=== PATIENT | female | born 1945 | race Caucasian/White ===

== ENCOUNTER → 2016-09-06 | Outpatient (CLI) | payer MEDICARE, BC ==
[2016-09-06 16:35] LABS: ALT 51 U/L (9-52); AST 31 U/L (14-36); Alkaline Phosphatase 79 U/L (38-126); Anion Gap 8 mmol/L; Blood Urea Nitrogen 18 mg/dL (7-17); Calcium 9.3 mg/dL (8.4-10.2); Carbon Dioxide 29 mmol/L (22-30); Chloride 106 mmol/L (98-107); Glucose 113 mg/dL (74-99); Non-African American GFR(MDRD) >60 (>60 ml/min/1.73 sqM); Potassium 4.1 mmol/L (3.5-5.1); Sodium 143 mmol/L (137-145); Total Bilirubin 0.6 mg/dL (0.2-1.3); Total Protein 6.2 g/dL (6.3-8.2)
== END | disposition home or self-care (01) ==
LOC: LABWHC1 15:17
PROVIDERS: ATTEND Internal Medicine Endocrinology, Diabetes & Metabolism
DX: E21.0 Primary hyperparathyroidism (principal)
CPT/HCPCS: 36415; 80053; 82306; 83970

== ENCOUNTER 2016-09-15 15:49 | Emergency (ER) | payer MEDICARE, BC ==
[2016-09-15 15:56] VITALS: BP 180/75; PULSE 85; RESP 20; TEMP 97.5
--- NOTE | 2016-09-15 16:11 | ED ---
Lower Extremity Injury HPI - General Chief Complaint: Extremity Injury, Lower Stated Complaint: Fall/Knee Pain Time Seen by Provider: 09/15/16 15:58 Source: patient, RN notes reviewed Mode of arrival: wheelchair Limitations: no limitations - History of Present Illness Initial Comments: Patient is a 71-year-old female presents emergency room for evaluation of left knee pain. Patient states around 10:00 this morning she slipped while putting the mail in her mailbox and landed on the ice. Patient states her knee landed directly on the ice. Patient states she's having increasing left knee pain. Patient states she's having some bruising and swelling of her left knee. Patient denies any numbness or tingling in her toes. Patient states the pain is worse whenever she walks. Patient denies any other injuries during incident. Patient denies head trauma, headache, dizziness, nausea or vomiting. Patient denies taking anything for pain. Patient states the pain has not been improving so she thought she should come here to have her knee evaluated. - Related Data Home Medications Medication Instructions Recorded Confirmed Montelukast [Singulair] 10 mg PO HS 10/04/15 09/15/16 Ranitidine HCl [Zantac] 150 mg PO QAM 09/15/16 09/15/16 Allergies Allergy/AdvReac Type Severity Reaction Status Date / Time cat dander Allergy Unknown Verified 09/15/16 16:13 dog dander Allergy Unknown Verified 09/15/16 16:13 mold Allergy WATERY EYES Verified 09/15/16 16:13 prednisone AdvReac Unknown Verified 09/15/16 16:13 YEAST Allergy WATER EYES Uncoded 09/15/16 15:57 YOGURT Allergy WATERY EYES Uncoded 09/15/16 15:57 Review of Systems ROS Statement: Those systems with pertinent positive or pertinent negative responses have been documented in the HPI. ROS Other: All systems not noted in ROS Statement are negative. Past Medical History Past Medical History: GERD/Reflux, Thyroid Disorder Additional Past Medical History / Comment(s): 10/25/15 Pt admtitted to floor s/ p parathyroidectomy. Other HX: ALLERGIES. PERIODIC VERTIGO. HYPOGYLCEMIA., PT VERY ANXIOUS ABOUT SURGERY. History of Any Multi-Drug Resistant Organisms: None Reported Past Surgical History: Appendectomy, Breast Surgery, Section, Hysterectomy Additional Past Surgical History / Comment(s): 10/25/15 Parathyroidectomy. Othr surgeries: BREAST SURGERY/NEG. D & C. LEFT CATARACT. Past Anesthesia/Blood Transfusion Reactions: No Reported Reaction, Motion Sickness Past Psychological History: No Psychological Hx Reported Additional Psychological History / Comment(s): Pt resides at home with her spouse. She is independent. She drives. She uses no assistive device. Smoking Status: Never smoker Past Alcohol Use History: None Reported Past Drug Use History: None Reported - Past Family History Father Family Medical History: Myocardial Infarction ([place]) Additional Family Medical History / Comment(s): Father of a [place] at age 48 yrs. Mother Family Medical History: CVA/TIA Additional Family Medical History / Comment(s): Mother at age 85 yrs. General Exam - General Exam Comments Initial Comments: Sitting in exam room, no acute distress. Limitations: no limitations General appearance: alert, in no apparent distress Head exam: Present: atraumatic, normocephalic, normal inspection Eye exam: Present: normal appearance ENT exam: Present: normal exam Neck exam: Present: normal inspection Respiratory exam: Present: normal lung sounds bilaterally. Absent: respiratory distress Cardiovascular Exam: Present: regular rate, normal rhythm, normal heart sounds Left Hip exam: Present: normal inspection, full ROM. Absent: tenderness Upper Leg exam: Present: normal inspection, full ROM. Absent: tenderness Knee exam: Present: tenderness (Anterior patella), swelling (Anterior patella), ecchymosis (Anterior patella). Absent: full ROM (Limited flexion secondary to pain) Lower Leg exam: Present: normal inspection, full ROM. Absent: tenderness Neurovascular tendon exam: Present: no vascular compromise. Absent: pulse deficit (2+ dorsal pedal and posterior tibial pulses), abnormal cap refill ( Capillary refill less than 2 seconds) Back exam: Present: normal inspection Neurological exam: Present: alert, oriented X3, CN II-XII intact Psychiatric exam: Present: normal affect, normal mood Skin exam: Present: warm, dry, intact, normal color. Absent: rash Course Vital Signs 09/15/16 15:54 Temperature 97.5 F L Pulse Rate 85 Respiratory 20 Rate Blood Pressure 180/75 O2 Sat by Pulse 99 Oximetry Medical Decision Making - Medical Decision Making Patient is a 71-year-old female presents emergency room for evaluation of fall/ left knee pain. Left knee x-ray: In tears soft tissue swelling with moderate knee joint effusion. Unable to exclude a subtle nondisplaced fracture of the lower third patella (per radiology). Left knee x-ray reviewed by myself, I did note lucency on the lower portion of the patella. Patient will be placed in knee immobilizer and advised follow-up with process control specialist on Saturday. Patient will be given crutches. Patient declined any pain medications and states she can take ibuprofen at home for pain. Patient states she understands everything that was discussed with her. Return parameters discussed. Case discussed with Dr. Freitas. - Radiology Data Radiology results: report reviewed, image reviewed Disposition Clinical Impression: Patellar fracture, Fall Disposition: HOME SELF-CARE Condition: Good Instructions: Patellar Fracture (ED) Additional Instructions: Rest, elevate and ice on and off for 10-15 minutes for the next 24-48 hours. Do not put any weight on left leg. Take Tylenol or Motrin for pain. Please follow-up with process control specialist on Saturday. If new symptoms develop or symptoms worsen, please return to the ER. Referrals: Akhil Leblanc MD [Primary Care Provider] - 1-2 days Ricky Latham DO [Doctor of Osteopathic Medicine] - 1-2 days Time of Disposition: 16:37
--- NOTE | 2016-09-15 16:32 | XR ---
EXAMINATION TYPE: XR knee complete LT DATE OF EXAM: 09/15/2016 4:23 PM COMPARISON: NONE HISTORY: 71-year-old female with pain after fall on ice TECHNIQUE: 3 views FINDINGS: Mild osteopenia mild anterior soft tissue swelling especially along the infrapatellar region and smal l to moderate knee joint effusion. A subtle lucency seen along the anterior cortex of the lower third patella especially on the oblique and lateral views. No other acute fracture or dislocation seen. IMPRESSION: Anterior soft tissue swelling with moderate knee joint effusion. Unable to exclude a subtle nondispla sarabjit fracture of the lower third patella.
== END 2016-09-15 16:49 | disposition home or self-care (01) ==
LOC: EC 15:49
DX: S82.002A Unspecified fracture of left patella, initial encounter for closed fracture (principal); K21.9 Gastro-esophageal reflux disease without esophagitis; Z79.899 Other long term (current) drug therapy; Z91.018 Allergy to other foods; Z91.048 Other nonmedicinal substance allergy status; W00.0XXA Fall on same level due to ice and snow, initial encounter; Y93.89 Activity, other specified
CPT/HCPCS: 73562; 99284; L1830 ×2

== ENCOUNTER → 2016-12-24 | Outpatient (CLI) | payer MEDICARE, BC ==
[2016-12-24 11:55] LABS: ALT 34 U/L (9-52); AST 27 U/L (14-36); Alkaline Phosphatase 73 U/L (38-126); Anion Gap 8 mmol/L; Blood Urea Nitrogen 17 mg/dL (7-17); Calcium 9.7 mg/dL (8.4-10.2); Carbon Dioxide 31 mmol/L (22-30); Chloride 105 mmol/L (98-107); Glucose 91 mg/dL (74-99); Non-African American GFR(MDRD) >60 (>60 ml/min/1.73 sqM); Potassium 4.1 mmol/L (3.5-5.1); Sodium 144 mmol/L (137-145); Total Bilirubin 0.8 mg/dL (0.2-1.3); Total Protein 6.9 g/dL (6.3-8.2)
== END | disposition home or self-care (01) ==
LOC: LABWHC1 11:03
PROVIDERS: ATTEND Internal Medicine Endocrinology, Diabetes & Metabolism
DX: E21.0 Primary hyperparathyroidism (principal); M81.0 Age-related osteoporosis without current pathological fracture
CPT/HCPCS: 36415; 80053; 82306

== ENCOUNTER → 2017-01-25 | Outpatient (CLI) | payer MEDICARE, BC ==
[~2017-01-25] MED LIST: REGADENOSON 0.4 MG/5 ML SYRINGE IV ONE
--- NOTE | 2017-01-25 11:01 | NM ---
EXAMINATION TYPE: NM stress lexiscan cardiolite DATE OF EXAM: 01/25/2017 10:51 AM COMPARISON: NONE HISTORY: Chest pain TECHNIQUE: After the intravenous administration of 10.8 mCi Tc 99m Sestamibi - Cardiolite resting SP ECT images acquired 45 minutes post injection. The patient received 0.4mg Lexiscan, 26.0 mCi Tc 99m Sestamibi - Stress images obtained [address] injection FINDINGS: Review of stress and rest SPECT images demonstrates area of reduced uptake of radiotracer and stress images involving the lateral wall the myocardium compared to rest images.. Gated analysis shows norm al wall motion with an estimated left ventricular ejection fraction of 85 %. IMPRESSION: Findings are suggestive of an area of stress-induced reversibility involving the lateral wall the myocardium which may be artifactual. Correlate with EKG and clinical analysis. Stress-induce d ischemia not excluded. A Yellow message has been communicated to Akhil Leblanc MD via the [employer] Critical Result system on 01/25/2017 10:59 AM, Message ID [id number].
--- NOTE | 2017-01-25 11:07 | US ---
EXAMINATION TYPE: US abdomen complete DATE OF EXAM: 01/25/2017 9:11 AM COMPARISON: CT scan 11/05/2015 CLINICAL HISTORY: R10.13 Epigastric Pain. EXAM MEASUREMENTS: Liver Length: 13.9 cm Gallbladder Wall: 0.4 cm CBD: 0.3 cm Spleen: 9.2 cm Right Kidney: 10.1 x 3.7 x 3.6 cm Left Kidney: 10.6 x 4.4 x 4.2 cm Pancreas: visualized portions appear slightly heterogeneous, tail obscured by overlying bowel Liver: heterogeneous Gallbladder: no evidence of stones Evidence for sonographic Barnett's sign: No CBD: wnl Spleen: granulomas Right Kidney: parapelvic cystic areas noted, dense echogenic foci noted with largest = 0.6cm Left Kidney: parapelvic cystic areas noted, dense echogenic area = 0.5cm Upper IVC: wnl Abd Aorta: visualized portions appear wnl IMPRESSION: 1. 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 Bilateral nephrolithiasis. 3. parapelvic renal cyst versus mild hydronephrosis
--- NOTE | 2017-01-25 12:28 | EST ---
DATE OF SERVICE: 01/25/2017 AGE: 71Y SEX: F HT: 66" WT: 147 lbs. Lexiscan Cardiolite Stress Test *Heart Rate Blood Pressure *Rest: 88 Rest: 198/91 * *Max. Achieved: 128 Maximum BP: 203/78 85% PMHR: 128 100% PMHR: 150 *METS: - INDICATIONS: EKG abnormality. MEDICATIONS: Cipro Patient was given Lexiscan injection over a period of 15 seconds. Peak heart rate of 128 was achieved. Maximum blood pressure of 203/78 mmHg was noted. Resting EKG shows normal sinus rhythm with normal HI interval and QRS duration and normal ST-T waves. No ST segment depression suggestive of ischemia is noted. FINAL IMPRESSION: 1. There is no evidence of any ST segment depression to suggest ischemia during Lexiscan injection. 2. The results of the nuclear study will follow.
== END | disposition home or self-care (01) ==
LOC: RADUSMAIN 08:16
PROVIDERS: ATTEND Family Medicine
DX: N20.0 Calculus of kidney (principal); D73.89 Other diseases of spleen; K76.0 Fatty (change of) liver, not elsewhere classified; I25.2 Old myocardial infarction
CPT/HCPCS: 93017; 76700; 78452; A9500; J2785

== ENCOUNTER → 2017-02-05 | Outpatient (CLI) | payer MEDICARE, BC ==
[2017-02-05 11:25] LABS: Anion Gap 8 mmol/L; Blood Urea Nitrogen 17 mg/dL (7-17); Carbon Dioxide 28 mmol/L (22-30); Chloride 107 mmol/L (98-107); Non-African American GFR(MDRD) >60 (>60 ml/min/1.73 sqM); Potassium 4.4 mmol/L (3.5-5.1); Sodium 143 mmol/L (137-145)
[2017-02-05 11:30] LABS: CH 28.8; CHCM 32.7; HCT 40.8 % (34.0-46.0); HDW 2.33; HGB 13.4 gm/dL (11.4-16.0); MCH 29.1 pg (25.0-35.0); MCV 88.3 fL (80.0-100.0); Mean Platelet Volume 8.6; RBC 4.62 m/uL (3.80-5.40); RDW 13.6 % (11.5-15.5)
== END ==
LOC: LABPAT 10:40
PROVIDERS: ATTEND Internal Medicine Interventional Cardiology
DX: Z01.812 Encounter for preprocedural laboratory examination (principal); R94.30 Abnormal result of cardiovascular function study, unspecified
CPT/HCPCS: 74000; 80051; 82565; 84520; 85027

== ENCOUNTER → 2017-02-05 | Outpatient (CLI) | payer MEDICARE, BC ==
--- NOTE | 2017-02-05 11:35 | XR ---
EXAMINATION TYPE: XR abdomen 1V DATE OF EXAM ORDERED: 02/05/2017 HISTORY: N20.0 stones. COMPARISON: Previous study dated 12/07/2015. FINDINGS: The abdominal gas pattern is normal. There is no evidence of obstruction or free air. Ther e are stable phleboliths within the pelvis. There is a questionable 5.3 cm millimeters calculus overl ebony the mid polar region of the right kidney. IMPRESSION: I CANNOT EXCLUDE A RIGHT RENAL CALCULUS.
== END | disposition home or self-care (01) ==
LOC: RADXRMAIN 11:09
PROVIDERS: ATTEND Urology
DX: N20.0 Calculus of kidney (principal)
CPT/HCPCS: 74000

== ENCOUNTER → 2017-02-12 | Day surgery (SDC) | payer MEDICARE, BC ==
[2017-02-07 17:07] VITALS: BMI 25.3
[~2017-02-12] MED LIST changes: +ACETAMINOPHEN TAB 325 MG TAB ONE; +ACETAMINOPHEN TAB 325 MG TAB PO PRN; +ALPRAZolam 0.25 MG TAB PO PRN; +ALPRAZolam 0.5 MG TAB PO PRN; +ASPIRIN 325 MG TAB PO STA; +ATORVASTATIN 80 MG TAB PO STA; +IOHEXOL 350 MG/ML 125ML BOTTLE INJ ONE; +LIDOCAINE 2% INJ 20 MG/ML SQ ONE; +NITROGLYCERIN SL TABS 0.4 MG TAB SUBLINGUAL PRN; -REGADENOSON 0.4 MG/5 ML SYRINGE IV ONE; +RX INFO: IV CONTRAST WAS GIVEN 1 EACH MISC MISCELLANE PRN; +SODIUM CHLORIDE 0.9% 1,000 ML IV SCH; +SODIUM CHLORIDE 0.9% 1,000 ML in EMPTY BAG 1 BAG IV ONE; +diphenhydrAMINE 50 MG/ML 1 ML VIAL IVP ONE
[2017-02-12 08:19] VITALS: RESP 18
[2017-02-12] MEDS: MIDAZOLAM 2 MG/2 ML VIAL IV ONE ×2 (08:45→08:47)
[2017-02-12] MEDS: VERAPAMIL SYRINGE (5 MG/10 ML) INTRAARTER ONE ×2 (08:56→09:11)
--- NOTE | 2017-02-12 10:43 | CC ---
DATE OF SERVICE: 02/12/2017 Performing physician: Baldev Wilson, hoisting pile driving engineer. PROCEDURE PERFORMED: 1. Selective right and left coronary angiogram. 2. Left heart catheterization. INDICATION: This is a pleasant 72-year-old female patient who underwent recently a stress test which showed lateral ischemia. She was brought today to undergo a heart catheterization. She was experiencing atypical chest discomfort. Approach: Right radial artery. COMPLICATIONS: None. Level of sedation: Moderate. PROCEDURE DESCRIPTION: After obtaining informed consent, the patient was brought to the cardiac labor mediator. Right radial artery was cannulated using micropuncture technique. The micropuncture wire passed easily, then I placed 6 Cymraes sheath in the right radial artery. Subsequently, I did selective right and left coronary angiogram using JR4 and JL 3.5 catheters. After that, I did left heart catheterization using a 5 Cymraes pigtail catheter. The procedure was completed without any complication. SELECTIVE CORONARY ANGIOGRAM: 1. The right coronary artery is a large-caliber vessel and it is a dominant vessel. The right coronary artery is angiographically normal besides being tortuous. Distally bifurcates into PDA and PLV branches; both are angiographically normal. 2. The left main is angiographically normal. It bifurcates into a medium-size left circumflex and left anterior descending artery. 3. The left circumflex is a medium caliber vessel and it is a nondominant vessel. The left circumflex is angiographically normal. 4. Left anterior descending artery. The proximal LAD is angiographically normal. The mid LAD is normal as well and gives rises into a medium size diagonal branch, which seems to be angiographically normally. The LAD distally is angiographically normal. HEMODYNAMICS: The left ventricular end-diastolic pressure was 12 mmHg and no gradient was identified across the aortic valve. CONCLUSION: 1. Tortuous right and left coronary system. 2. Normal coronary angiogram. 3. Dominant right coronary artery. 4. Medium-sized nondominant left circumflex coronary artery. POSTPROCEDURE MANAGEMENT: Maximize medical treatment and follow up with the patient.
--- NOTE | 2017-02-12 10:57 | LTR ---
February 12, 2017 ANICETO LEBLANC MD RE: Laila Hayden Dear Dr. Leblanc: Ms. Ulloa Catracho underwent a heart catheterization which showed normal coronaries. I want to thank you for allowing me to participate in her care and please do not hesitate to call if you have any questions or concerns. Sincerely, DEBBIE ROBERTS MD
[2017-02-12 13:22] VITALS: TEMP 98
[2017-02-12 13:56] VITALS: BP 168/61; PULSE 66
== END ==
LOC: CATHCVL 07:47
PROVIDERS: ATTEND Internal Medicine Interventional Cardiology
DX: R94.39 Abnormal result of other cardiovascular function study (principal); I25.110 Atherosclerotic heart disease of native coronary artery with unstable angina pectoris; Z82.49 Family history of ischemic heart disease and other diseases of the circulatory system; Z79.2 Long term (current) use of antibiotics; Z79.899 Other long term (current) drug therapy
CPT/HCPCS: 93458; 99152; 99153; C1894; J2001; J2250; J1200; J1644; Q9967

== ENCOUNTER → 2017-05-01 | Outpatient (CLI) | payer MEDICARE, BC ==
--- NOTE | 2017-05-02 13:10 | MM ---
Reason for exam: screening (asymptomatic). Last mammogram was performed 1 year and 1 month ago. History: Patient is postmenopausal. Family history of breast cancer in aunt at age 60 and breast cancer in grandmother at age 70. Benign cyst aspiration of the right breast. Benign excisional biopsy of the right breast. Took hormonal contraceptives for 3 years beginning at age 48. Physical Findings: A clinical breast exam by your physician is recommended on an annual basis and results should be correlated with mammographic findings. MG 3D Screening Mammo W/Cad Bilateral CC and MLO view(s) were taken. Prior study comparison: April 12, 2016, bilateral MG 3d screening mammo w/cad. April 08, 2015, bilateral MG screening mammo w CAD. There are scattered fibroglandular densities. No suspicious abnormality. No significant changes when compared with prior studies. ASSESSMENT: Negative, BI-RAD 1 RECOMMENDATION: Routine screening mammogram of both breasts in 1 year.
== END | disposition home or self-care (01) ==
LOC: RADMAMWWP 07:45
PROVIDERS: ATTEND Family Medicine
DX: Z12.31 Encounter for screening mammogram for malignant neoplasm of breast (principal)
CPT/HCPCS: 77063; G0202

== ENCOUNTER → 2017-09-23 | Outpatient (CLI) | payer MEDICARE, BC ==
[2017-09-23 16:05] LABS: ALT 42 U/L (9-52); AST 32 U/L (14-36); Albumin 3.8 g/dL (3.5-5.0); Alkaline Phosphatase 72 U/L (38-126); Anion Gap 6 mmol/L; Blood Urea Nitrogen 20 mg/dL (7-17); Calcium 9.8 mg/dL (8.4-10.2); Carbon Dioxide 31 mmol/L (22-30); Chloride 105 mmol/L (98-107); Glucose 72 mg/dL (74-99); Potassium 4.9 mmol/L (3.5-5.1); Sodium 142 mmol/L (137-145); Total Bilirubin 0.5 mg/dL (0.2-1.3); Total Protein 6.4 g/dL (6.3-8.2)
[2017-09-23 19:40] LABS: Vitamin D 25 Hydroxy 35.3 ng/mL (30.0-100.0)
[2017-09-23 21:00] LABS: Parathyroid Hormone Intact 27.3 pg/mL (14.0-72.0)
== END | disposition home or self-care (01) ==
LOC: LABWHC1 15:19
PROVIDERS: ATTEND Internal Medicine Endocrinology, Diabetes & Metabolism
DX: E21.0 Primary hyperparathyroidism (principal); E21.2 Other hyperparathyroidism
CPT/HCPCS: 36415; 80053; 82306; 83970

== ENCOUNTER → 2018-03-14 | Outpatient (CLI) | payer MEDICARE, BC ==
[2018-03-14 11:52] LABS: Albumin 3.9 g/dL (3.5-5.0); Calcium 9.5 mg/dL (8.4-10.2); Total Bilirubin 0.4 mg/dL (0.2-1.3); Total Protein 6.4 g/dL (6.3-8.2)
[2018-03-14 12:10] LABS: Potassium 5.2 mmol/L (3.5-5.1)
[2018-03-14 17:00] LABS: Vitamin D 25 Hydroxy 31.4 ng/mL (30.0-100.0)
[2018-03-14 17:24] LABS: Parathyroid Hormone Intact 52.4 pg/mL (14.0-72.0)
== END | disposition home or self-care (01) ==
LOC: LABWHC1 11:11
PROVIDERS: ATTEND Internal Medicine Endocrinology, Diabetes & Metabolism
DX: E21.0 Primary hyperparathyroidism (principal)
CPT/HCPCS: 36415; 80053; 82306; 83970

== ENCOUNTER → 2018-05-30 | Outpatient (CLI) | payer MEDICARE, BC ==
--- NOTE | 2018-06-02 10:16 | MM ---
Reason for exam: screening (asymptomatic). Last mammogram was performed 1 year and 1 month ago. History: Patient is postmenopausal and history of other cancer. Family history of breast cancer in aunt at age 60 and breast cancer in grandmother at age 70. Benign cyst aspiration of the right breast. Benign excisional biopsy of the right breast. Took hormonal contraceptives for 3 years beginning at age 48. Physical Findings: A clinical breast exam by your physician is recommended on an annual basis and results should be correlated with mammographic findings. MG 3D Screening Mammo W/Cad Bilateral CC and MLO view(s) were taken. Prior study comparison: May 01, 2017, bilateral MG 3d screening mammo w/cad. April 12, 2016, bilateral MG 3d screening mammo w/cad. There are scattered fibroglandular densities. There is no discrete abnormality. No significant changes when compared with prior studies. ASSESSMENT: Negative, BI-RAD 1 RECOMMENDATION: Routine screening mammogram of both breasts in 1 year.
== END ==
LOC: RADMAMWWP 09:37
PROVIDERS: ATTEND Family Medicine
DX: Z12.31 Encounter for screening mammogram for malignant neoplasm of breast (principal)
CPT/HCPCS: 77063; 77067

== ENCOUNTER → 2018-06-06 | Outpatient (CLI) | payer MEDICARE, BC ==
--- NOTE | 2018-06-06 12:29 | BD ---
EXAMINATION TYPE: Axial Bone Density DATE OF EXAM: 06/06/2018 CLINICAL HISTORY: Height: 64.5 inches Weight: 158 lbs FRAX RISK QUESTIONS: Alcohol (3 or more units per day): no Family History (Parent hip fracture): no Glucocorticoids (More than 3mos): no (Ex: prednisone, prednisolone, methylprednisolone, dexamethasone, and hydrocortisone). History of Fracture in Adulthood: left patella about 16 months ago Secondary Osteoporosis: 1. Type 1 Diabetes: no 2. Hyperthyroidism: no 3. Menopause before 45: hysterectomy age 35, bilateral ovary removal age 46 4. Malnutrition: no 5. Chronic liver disease: no Rheumatoid Arthritis: no Current Tobacco Use: no RISK FACTORS HISTORY OF: History of Wrist Fracture: yes When: as child Family History of Osteoporosis: no Active: yes Diet low in dairy products/other sources of calcium: at least one serving a day Postmenopausal woman: yes Take estrogen and/or progesterone medications: no now How long: age [age] Lost more than 2 inches in height since high school: unsure, states height was once about 66 inches Frequent falls: no Poor Health: no Hyperparathyroidism: yes, had one parathyroid gland removed 2 years ago Adrenal Insufficiency: no MEDICATIONS: Prednisone or other steroids: no Thyroid Medications:no Osteoporosis Medications: no Additional Medications: Blood pressure meds Additional History: heart cath EXAM MEASUREMENTS: Bone mineral densitometry was performed using the [employer] System. Bone mineral density as measured about the Lumbar spine is: ----- L1-L4(G/cm2): 0.860 T Score Values are as follows: ----- L2: -3.4 ----- L3: -2.5 ----- L4: -2.7 ----- L1-L4: -2.7 Bone mineral density 0.0% since study of: 04/17/2016 Bone mineral density about the R hip (g/cm2): 0.733 Bone mineral density about the L hip (g/cm2): 0.745 T Score values are as follows: -----R Neck: -2.2 -----L Neck: -2.1 -----R Total: -1.3 -----L Total: -1.2 Bone mineral density has: Decreased -4.8% since study of: 04/17/2016 IMPRESSION: Osteoporosis (T Score less than -2.5). There is increased fracture risk and therapy is usually indicated based on age. Re-Screen 1-2 years. NOTE: T-SCORE=SD OF THE YOUNG ADULT MEAN.
== END ==
LOC: RADBDWWP 07:16
PROVIDERS: ATTEND Family Medicine
DX: M81.0 Age-related osteoporosis without current pathological fracture (principal)
CPT/HCPCS: 77080

== ENCOUNTER → 2018-11-08 | Outpatient (CLI) | payer MEDICARE, BC ==
[2018-11-08 11:57] LABS: Basophils % (A) 1 %; Eosinophils # (A) 0.1 k/uL (0-0.7); Eosinophils % (A) 3 %; HCT 41.8 % (34.0-46.0); HGB 13.4 gm/dL (11.4-16.0); Lymphocytes # (A) 1.3 k/uL (1.0-4.8); Lymphocytes % (A) 33 %; MCH 29.2 pg (25.0-35.0); MCV 91.4 fL (80.0-100.0); Mean Platelet Volume 8.7; Monocytes # (A) 0.2 k/uL (0-1.0); Monocytes % (A) 6 %; Neutrophils # (A) 2.2 k/uL (1.3-7.7); Neutrophils % (A) 55 %; Platelet Count 213 k/uL (150-450); RBC 4.58 m/uL (3.80-5.40); RDW 12.7 % (11.5-15.5); WBC 3.9 k/uL (3.8-10.6)
[2018-11-08 16:17] LABS: Parathyroid Hormone Intact 37.2 pg/mL (14.0-72.0)
[2018-11-08 16:35] LABS: Albumin 4.3 g/dL (3.80-4.90); Albumin/Globulin Ratio 1.87 (1.60-3.17); Anion Gap 5.9 mmol/L (4.00-12.00); Calcium 9.6 mg/dL (8.7-10.3); Carbon Dioxide 28.1 mmol/L (21.6-31.8); Globulin 2.3 g/dL (1.6-3.3); LDL Cholesterol,Calculated 91.8 mg/dL (0.0-131.0); Potassium 4.5 mmol/L (3.5-5.5); Total Bilirubin 0.7 mg/dL (0.3-1.2); Total Protein 6.6 g/dL (6.2-8.2); VLDL Calculation 15.2 mg/dL (5.00-40.00)
[2018-11-08 16:37] LABS: Vitamin D 25 Hydroxy 35.8 ng/mL (30.0-100.0)
[2018-11-08 17:07] LABS: Hepatitis C IgG Antibody Non-Reactive (Non-Reactive)
== END ==
LOC: LABWHC1 09:42
PROVIDERS: ATTEND Internal Medicine Endocrinology, Diabetes & Metabolism
DX: I10 Essential (primary) hypertension (principal); M81.0 Age-related osteoporosis without current pathological fracture; Z20.9 Contact with and (suspected) exposure to unspecified communicable disease
CPT/HCPCS: 36415; 80053; 80061; 82306; 83970; 84443; 85025; 86803

== ENCOUNTER → 2018-12-11 | Outpatient (CLI) | payer MEDICARE, BC ==
[~2018-12-11] MED LIST changes: -ACETAMINOPHEN TAB 325 MG TAB ONE; -ACETAMINOPHEN TAB 325 MG TAB PO PRN; -ALPRAZolam 0.25 MG TAB PO PRN; -ALPRAZolam 0.5 MG TAB PO PRN; -ASPIRIN 325 MG TAB PO STA; -ATORVASTATIN 80 MG TAB PO STA; +DENOSUMAB 60 MG/ML 1 ML SYRINGE SQ NR; -IOHEXOL 350 MG/ML 125ML BOTTLE INJ ONE; -LIDOCAINE 2% INJ 20 MG/ML SQ ONE; -NITROGLYCERIN SL TABS 0.4 MG TAB SUBLINGUAL PRN; -RX INFO: IV CONTRAST WAS GIVEN 1 EACH MISC MISCELLANE PRN; -SODIUM CHLORIDE 0.9% 1,000 ML IV SCH; -SODIUM CHLORIDE 0.9% 1,000 ML in EMPTY BAG 1 BAG IV ONE; -diphenhydrAMINE 50 MG/ML 1 ML VIAL IVP ONE
[2018-12-11 14:51] VITALS: BP 167/78; PULSE 77; RESP 16; TEMP 97.9
== END | disposition home or self-care (01) ==
LOC: PROCWHC3 14:26
PROVIDERS: ATTEND Internal Medicine Endocrinology, Diabetes & Metabolism
DX: M81.0 Age-related osteoporosis without current pathological fracture (principal)
CPT/HCPCS: 96372; J0897

== ENCOUNTER → 2019-01-05 | Outpatient (CLI) | payer MEDICARE, BC ==
--- NOTE | 2019-01-06 09:22 | XR ---
EXAMINATION TYPE: XR ribs RT w pa chest xray DATE OF EXAM: 01/05/2019 COMPARISON: NONE TECHNIQUE: PA view of the chest and 4 views of the right ribs are submitted. HISTORY: Pain FINDINGS: There is apical pleural thickening with no sizable pneumothorax. Diffuse osteopenia and arthropathy o f the shoulders. Chronic appearing deformity of the anterolateral right sixth rib. No acute displaced rib fracture. IMPRESSION: 1. No acute displaced rib fracture. 2. Bilateral pleural thickening.
== END | disposition home or self-care (01) ==
LOC: RADXRMAIN 15:55
PROVIDERS: ATTEND Midwife
DX: J92.9 Pleural plaque without asbestos (principal)

== ENCOUNTER → 2019-05-06 | Outpatient (CLI) | payer MEDICARE, BC ==
[2019-05-06 23:20] LABS: Vitamin D 25 Hydroxy 35.8 ng/mL (30.0-100.0)
[2019-05-07 01:17] LABS: African American GFR (CKD) 73.5 (60.0-200.0); Albumin/Globulin Ratio 2.22 (1.60-3.17); Anion Gap 7.2 mmol/L (4.00-12.00); BUN/Creat Ratio 23.33 Ratio (12.00-20.00); Calcium 9.5 mg/dL (8.7-10.3); Carbon Dioxide 27.8 mmol/L (21.6-31.8); Globulin 1.8 g/dL (1.6-3.3); Potassium 4.3 mmol/L (3.5-5.5); Total Bilirubin 0.6 mg/dL (0.2-1.2); Total Protein 5.8 g/dL (6.2-8.2)
== END | disposition home or self-care (01) ==
LOC: LABWHC1 14:35
PROVIDERS: ATTEND Internal Medicine Endocrinology, Diabetes & Metabolism
DX: M81.0 Age-related osteoporosis without current pathological fracture (principal)
CPT/HCPCS: 36415; 80053; 82306; 83970; 84443

== ENCOUNTER → 2019-06-25 | Outpatient (CLI) | payer MEDICARE, BC ==
[~2019-06-25] MED LIST changes: -DENOSUMAB 60 MG/ML 1 ML SYRINGE SQ NR; +DENOSUMAB 60 MG/ML 1 ML SYRINGE SQ ONE
[2019-06-25 14:31] VITALS: BP 161/81; PULSE 76; RESP 15; TEMP 97.7
== END | disposition home or self-care (01) ==
LOC: PROCWHC3 14:13
PROVIDERS: ATTEND Internal Medicine Endocrinology, Diabetes & Metabolism
DX: M81.0 Age-related osteoporosis without current pathological fracture (principal)
CPT/HCPCS: 96372; J0897

== ENCOUNTER → 2019-06-26 | Outpatient (CLI) | payer MEDICARE, BC ==
[2019-06-26 09:22] LABS: Basophils % (A) 1 %; Eosinophils # (A) 0.1 k/uL (0-0.7); Eosinophils % (A) 3 %; HCT 40.3 % (34.0-46.0); HGB 13.4 gm/dL (11.4-16.0); Lymphocytes # (A) 1.3 k/uL (1.0-4.8); Lymphocytes % (A) 32 %; MCH 30.5 pg (25.0-35.0); MCHC 33.2 g/dL (31.0-37.0); MCV 91.9 fL (80.0-100.0); Mean Platelet Volume 8.3; Monocytes # (A) 0.3 k/uL (0-1.0); Monocytes % (A) 7 %; Neutrophils # (A) 2.2 k/uL (1.3-7.7); Neutrophils % (A) 54 %; Platelet Count 215 k/uL (150-450); RBC 4.39 m/uL (3.80-5.40); RDW 12.4 % (11.5-15.5); WBC 4.1 k/uL (3.8-10.6)
[2019-06-26 16:47] LABS: African American GFR (CKD) 73.5 (60.0-200.0); Albumin/Globulin Ratio 2.11 (1.60-3.17); Anion Gap 7.1 mmol/L (4.00-12.00); BUN/Creat Ratio 21.11 Ratio (12.00-20.00); Calcium 9.2 mg/dL (8.7-10.3); Carbon Dioxide 28.9 mmol/L (21.6-31.8); Chol/HDL Ratio 2.96; Globulin 1.9 g/dL (1.6-3.3); LDL Cholesterol,Calculated 95.4 mg/dL (0.0-131.0); Potassium 4.3 mmol/L (3.5-5.5); Total Bilirubin 0.6 mg/dL (0.2-1.2); Total Protein 5.9 g/dL (6.2-8.2); VLDL Calculation 16.6 mg/dL (5.00-40.00)
== END ==
LOC: LABWHC1 08:00
PROVIDERS: ATTEND Family Medicine
DX: Z00.00 Encounter for general adult medical examination without abnormal findings (principal); I10 Essential (primary) hypertension; E21.3 Hyperparathyroidism, unspecified
CPT/HCPCS: 36415; 80053; 80061; 84439; 84443; 85025

== ENCOUNTER → 2019-07-22 | Outpatient (CLI) | payer MEDICARE, BC ==
--- NOTE | 2019-07-24 10:55 | MM ---
Reason for exam: screening (asymptomatic). Last mammogram was performed 1 year and 2 months ago. History: Patient is postmenopausal and history of other cancer. Family history of breast cancer in aunt at age 60 and breast cancer in grandmother at age 70. Benign cyst aspiration of the right breast. Benign excisional biopsy of the right breast. Took hormonal contraceptives for 3 years beginning at age 48. Physical Findings: A clinical breast exam by your physician is recommended on an annual basis and results should be correlated with mammographic findings. MG 3D Screening Mammo W/Cad Bilateral CC and MLO view(s) were taken. Prior study comparison: May 30, 2018, bilateral MG 3d screening mammo w/cad. May 01, 2017, bilateral MG 3d screening mammo w/cad. There are scattered fibroglandular densities. No significant changes when compared with prior studies. ASSESSMENT: Negative, BI-RAD 1 RECOMMENDATION: Routine screening mammogram of both breasts in 1 year.
== END | disposition home or self-care (01) ==
LOC: RADMAMWWP 15:08
PROVIDERS: ATTEND Family Medicine
DX: Z12.31 Encounter for screening mammogram for malignant neoplasm of breast (principal)
CPT/HCPCS: 77063; 77067

== ENCOUNTER → 2020-01-14 | Outpatient (CLI) | payer MEDICARE, BC ==
[~2020-01-14] MED LIST changes: +DENOSUMAB 60 MG/ML 1 ML SYRINGE SQ NR; -DENOSUMAB 60 MG/ML 1 ML SYRINGE SQ ONE
[2020-01-14 13:09] VITALS: BP 176/93; PULSE 80; RESP 18; TEMP 97.9
== END | disposition home or self-care (01) ==
LOC: PROCWHC3 13:01
PROVIDERS: ATTEND Internal Medicine Endocrinology, Diabetes & Metabolism
DX: M81.0 Age-related osteoporosis without current pathological fracture (principal)
CPT/HCPCS: 96372; J0897

== ENCOUNTER → 2020-06-16 | Outpatient (CLI) | payer MEDICARE, BC ==
--- NOTE | 2020-06-16 20:27 | BD ---
EXAMINATION TYPE: Axial Bone Density DATE OF EXAM: 06/16/2020 COMPARISON: 06.06.2018 CLINICAL HISTORY: 75 YR OLD FEMALE.....ICD-10 CODE: M81.0 AGE RELATED OSTEOPOROSIS Height: 64.2 Weight: 162 FRAX RISK QUESTIONS: History of Fracture in Adulthood: YES Secondary Osteoporosis: YES 3. Menopause before 45: YES RISK FACTORS HISTORY OF: History of Wrist Fracture: RT WRIST AN ADULT HX OF LT PATELLA FX AN ADULT Diet low in dairy products/other sources of calcium: YES Postmenopausal woman: YES, AT ABOUT 37 YRS OLD TOTAL HYST Hyperparathyroidism: YES, PARATHYROID REMOVAL X1 Adrenal Insufficiency: NO MEDICATIONS: Osteoporosis Medications: YES, PROLIA, FOR 3 YRS, OSTEOPOROSIS MED FOR ABOUT 10 YRS Additional Medications: BP MEDS, XANAX PRN, REFLUX MEDS, VIT D Additional History: HYPOGLYCEMIC, HYPERTENSION, REFLUX EXAM MEASUREMENTS: Bone mineral densitometry was performed using the [employer] System. Bone mineral density as measured about the Lumbar spine is: ----- L1-L4(G/cm2): 0.936 T Score Values are as follows: ----- L1: -1.8 ----- L2: -2.7 ----- L3: -2.3 ----- L4: -1.5 ----- L1-L4: -2.0 Bone mineral density has: Increased 9.7% since study of: 06.06.2018 Bone mineral density about the R hip (g/cm2): 0.876 Bone mineral density about the L hip (g/cm2): 0.934 T Score values are as follows: -----R Neck: -2.1 -----L Neck: -2.0 -----R Total: -1.0 -----L Total: -0.6 Bone mineral density has: Increased 7.1% since study of: 06.06.2018 FRAX%s: THERE IS A 20.8% CHANCE FOR A MAJOR OSTEOPOROTIC FX AND A 5.2% FOR HIP......PROBABILITY FO R FX IN 10 YRS TIME IMPRESSION: Osteopenia (T Score between -2.5 and -1). There is slightly increased risk of fracture and the patient may be considered for treatment. Re-Screen 2-5 years. NOTE: T-SCORE=SD OF THE YOUNG ADULT MEAN.
== END | disposition home or self-care (01) ==
LOC: RADBDWWP 07:50
PROVIDERS: ATTEND Internal Medicine Endocrinology, Diabetes & Metabolism
DX: M85.80 Other specified disorders of bone density and structure, unspecified site (principal); M81.0 Age-related osteoporosis without current pathological fracture
CPT/HCPCS: 77080

== ENCOUNTER → 2020-07-20 | Outpatient (CLI) | payer MEDICARE, BC ==
[2020-07-20 11:47] VITALS: BP 155/78; PULSE 67; RESP 16; TEMP 97.7
== END | disposition home or self-care (01) ==
LOC: PROCWHC3 11:28
PROVIDERS: ATTEND Internal Medicine Endocrinology, Diabetes & Metabolism
DX: M81.0 Age-related osteoporosis without current pathological fracture (principal)
CPT/HCPCS: 96372; J0897

== ENCOUNTER → 2020-08-09 | Outpatient (CLI) | payer MEDICARE, BC ==
--- NOTE | 2020-08-10 10:10 | MM ---
Reason for exam: screening (asymptomatic). Last mammogram was performed 1 year and 1 month ago. History: Patient is postmenopausal and history of other cancer. Family history of breast cancer in aunt at age 60 and breast cancer in grandmother at age 70. Benign cyst aspiration of the right breast. Benign excisional biopsy of the right breast. Took hormonal contraceptives for 3 years beginning at age 48. Physical Findings: A clinical breast exam by your physician is recommended on an annual basis and results should be correlated with mammographic findings. MG 3D Screening Mammo W/Cad Bilateral CC and MLO view(s) were taken. Prior study comparison: July 22, 2019, bilateral MG 3d screening mammo w/cad. May 30, 2018, bilateral MG 3d screening mammo w/cad. There are scattered fibroglandular densities. No significant changes when compared with prior studies. ASSESSMENT: Benign, BI-RAD 2 RECOMMENDATION: Routine screening mammogram of both breasts in 1 year.
== END | disposition home or self-care (01) ==
LOC: RADMAMWWP 08:49
PROVIDERS: ATTEND Family Medicine
DX: Z12.31 Encounter for screening mammogram for malignant neoplasm of breast (principal)
CPT/HCPCS: 77063; 77067

== ENCOUNTER → 2021-06-06 | Outpatient (CLI) | payer MEDICARE, BC ==
[2021-06-07 11:51] LABS: African American GFR (CKD) 103.3 (60.0-200.0); Albumin 4.2 g/dL (3.8-4.9); Albumin/Globulin Ratio 1.83 (1.60-3.17); BUN/Creat Ratio 35.83 Ratio (12.00-20.00); Blood Urea Nitrogen 21.5 mg/dL (9.0-27.0); Calcium 9.7 mg/dL (8.7-10.3); Globulin 2.3 g/dL (1.6-3.3); Non-African American GFR(CKD) 89.2 (60.0-200.0); Potassium 4.9 mmol/L (3.5-5.5); Total Bilirubin 0.5 mg/dL (0.30-1.20); Total Protein 6.5 g/dL (6.2-8.2)
[2021-06-07 11:52] LABS: Anion Gap 15.4 mmol/L (4.00-12.00); Carbon Dioxide 21.5 mmol/L (21.6-31.8)
== END | disposition home or self-care (01) ==
LOC: LABWHC1 08:57
PROVIDERS: ATTEND Internal Medicine Endocrinology, Diabetes & Metabolism
DX: M81.0 Age-related osteoporosis without current pathological fracture (principal)
CPT/HCPCS: 36415; 80053; 82306; 82523; 83970; 84443

== ENCOUNTER → 2022-01-03 | Outpatient (CLI) | payer MEDICARE, BC ==
--- NOTE | 2022-01-04 12:29 | MM ---
Reason for exam: screening (asymptomatic). Last mammogram was performed 1 year and 5 months ago. History: Patient is postmenopausal and history of other cancer. Family history of breast cancer in aunt at age 60 and breast cancer in grandmother at age 70. Benign cyst aspiration of the right breast. Benign excisional biopsy of the right breast. Took hormonal contraceptives for 3 years beginning at age 48. Physical Findings: A clinical breast exam by your physician is recommended on an annual basis and results should be correlated with mammographic findings. MG 3D Screening Mammo W/Cad Bilateral CC and MLO view(s) were taken. XCCL view(s) were taken of the left breast. Prior study comparison: August 09, 2020, bilateral MG 3d screening mammo w/cad. July 22, 2019, bilateral MG 3d screening mammo w/cad. May 30, 2018, bilateral MG 3d screening mammo w/cad. There are scattered fibroglandular densities. There are benign appearing vascular calcifications bilaterally. There is no discrete abnormality. ASSESSMENT: Benign, BI-RAD 2 RECOMMENDATION: Routine screening mammogram of both breasts in 1 year.
== END | disposition home or self-care (01) ==
LOC: RADMAMWWP 14:49
PROVIDERS: ATTEND Family Medicine
DX: Z12.31 Encounter for screening mammogram for malignant neoplasm of breast (principal); Z78.0 Asymptomatic menopausal state; Z80.3 Family history of malignant neoplasm of breast
CPT/HCPCS: 77063; 77067

== ENCOUNTER → 2022-06-18 | Outpatient (CLI) | payer MEDICARE, BC ==
--- NOTE | 2022-06-18 15:06 | BD ---
EXAMINATION TYPE: Axial Bone Density DATE OF EXAM: 06/18/2022 COMPARISON: 06-06-2018 CLINICAL HISTORY: 77 years year old Female. ICD-10 CODE: M81.0 AGE-RELATED OSTEOPOROSIS Height: 65IN Weight: 161LB FRAX RISK QUESTIONS: History of Fracture in Adulthood: YES Secondary Osteoporosis: 3. Menopause before 45: YES PARTIAL HYSTERECTOMY AT 37 RISK FACTORS HISTORY OF: Family History of Osteoporosis: NO Active: YES Postmenopausal woman: YES If Premenopausal, do you have irregular periods: Take estrogen and/or progesterone medications: ESTROGEN NONE CURRENT How long: MAYBE 3 YEARS AFTER HYSTERECTOMY MEDICATIONS: Osteoporosis Medications: Which medication: PROLIA NOT CURRENT How Lon YEARS Additional Medications: BP MED, VITAMIN D Additional History: EXAM MEASUREMENTS: Bone mineral densitometry was performed using the [employer]. Bone mineral density as measured about the Lumbar spine is: ----- L1-L4(G/cm2): 0.881 T Score Values are as follows: ----- L1: -2.8 ----- L2: -2.7 ----- L3: -2.7 ----- L4: -2.1 ----- L1-L4: -2.5 Bone mineral density has: Increased 5.3% since study of: 06-06-18 Bone mineral density about the R hip (g/cm2): 0.874 Bone mineral density about the L hip (g/cm2): 0.860 T Score values are as follows: -----R Neck: -2.0 -----L Neck: -1.7 -----R Total: -1.1 -----L Total: -1.2 Bone mineral density has: Increased 2.6% since study of: 06-06-18 FRAX%s: The graph provided illustrates a 20.5% chance for a major osteoporotic fx and a 5.1% chance f or the hips probability for fx in 10 years time. IMPRESSION: Osteoporosis (T Score less than -2.5). There is increased fracture risk and therapy is usually indicated based on age. Re-Screen 1-2 years. NOTE: T-SCORE=SD OF THE YOUNG ADULT MEAN.
== END | disposition home or self-care (01) ==
LOC: RADBDWWP 11:20
PROVIDERS: ATTEND Internal Medicine Endocrinology, Diabetes & Metabolism
DX: M81.0 Age-related osteoporosis without current pathological fracture (principal)
CPT/HCPCS: 77080

== ENCOUNTER → 2022-12-17 | Outpatient (CLI) | payer MEDICARE, BC ==
[2022-12-17 16:36] LABS: Albumin/Globulin Ratio 1.74 (1.60-3.17); BUN/Creat Ratio 19.22 Ratio (12.00-20.00); Blood Urea Nitrogen 17.3 mg/dL (9.0-27.0); Calcium 9.3 mg/dL (8.7-10.3); Globulin 2.3 g/dL (1.6-3.3); Non-African American GFR(CKD) 62.1 (60.0-200.0); Potassium 4.7 mmol/L (3.5-5.5); Total Bilirubin 0.4 mg/dL (0.30-1.20); Total Protein 6.3 g/dL (6.2-8.2)
== END | disposition home or self-care (01) ==
LOC: LABWHC1 09:40
PROVIDERS: ATTEND Internal Medicine Endocrinology, Diabetes & Metabolism
DX: M81.0 Age-related osteoporosis without current pathological fracture (principal)
CPT/HCPCS: 36415; 80053; 82306; 82523; 83970; 84443

== ENCOUNTER → 2023-01-16 | Outpatient (CLI) | payer MEDICARE, BC ==
--- NOTE | 2023-01-16 10:17 | MM ---
Reason for Exam: Screening (asymptomatic). Last screening mammogram was performed 12 month(s) ago. Patient History: Menarche at age 13. First Full-Term at age 19. Left ovary removed at age 46. Right ovary removed at age 46. Hysterectomy at age 35. Postmenopausal. Other cancer. Hormonal Contraceptives for 3 years from age 48 until age 51. Benign Cyst Aspiration on the right side. Benign Excisional Biopsy on the right side. Maternal grandmother had breast cancer, age 70. Maternal aunt had breast cancer, age 60. Risk Values: Brandie 5 year model risk: 1.5%. NCI Lifetime model risk: 3.1%. Prior Study Comparison: 07/22/2019 Bilateral Screening Mammogram, [facility]. 08/09/2020 Bilateral Screening Mammogram, [facility]. 01/03/2022 Bilateral Screening Mammogram, [facility]. Tissue Density: There are scattered fibroglandular densities. Findings: Analyzed By CAD. There is no suspicious group of microcalcifications or new suspicious mass in either breast. Overall Assessment: Negative, BI-RAD 1 Management: Screening Mammogram of both breasts in [address] [facility] will attempt to contact patient to return for supplemental views and ultrasound if indicated. Patient should continue monthly self-breast exams. A clinical breast exam by your physician is recommended on an annual basis. This exam should not preclude additional follow-up of suspicious palpable abnormalities. Note on Brandie scores and lifetime risk: 1. A Brandie score greater than 3% is considered moderate risk. If this is the case, consider specialist referral to assess eligibility for a risk reducing agent. 2. If overall lifetime risk for the development of breast cancer is 20% or higher, the patient may qualify for future screening with alternating mammogram and breast MRI. Electronically signed and approved by: Bhaskar Diez DO
== END | disposition home or self-care (01) ==
LOC: RADMAMWWP 07:45
PROVIDERS: ATTEND Family Medicine
DX: Z12.31 Encounter for screening mammogram for malignant neoplasm of breast (principal); Z78.0 Asymptomatic menopausal state; Z80.3 Family history of malignant neoplasm of breast
CPT/HCPCS: 77063; 77067

== ENCOUNTER → 2023-06-14 | Outpatient (CLI) | payer MEDICARE, BC ==
[2023-06-14 16:53] LABS: ALT 24 U/L (8-44); AST 26 U/L (13-35); Albumin 4.1 d/dL (3.8-4.9); Albumin/Globulin Ratio 1.71 Ratio (1.60-3.17); Alkaline Phosphatase 68 U/L (41-126); Calcium 9.5 mg/dL (8.7-10.3); Carbon Dioxide 27.5 mmol/L (21.6-31.8); Chloride 107 mmol/L (96-109); Globulin 2.4 d/dL (1.6-3.3); Glucose 91 mg/dL (70-110); Sodium 143 mmol/L (135-145); Total Bilirubin 0.4 mg/dL (0.3-1.2); Total Protein 6.5 d/dL (6.2-8.2)
== END | disposition home or self-care (01) ==
LOC: LABWHC1 10:27
PROVIDERS: ATTEND Internal Medicine Endocrinology, Diabetes & Metabolism
DX: E55.9 Vitamin D deficiency, unspecified (principal); Z86.39 Personal history of other endocrine, nutritional and metabolic disease
CPT/HCPCS: 36415; 80053; 82306; 83970

== ENCOUNTER → 2023-06-19 | Outpatient (CLI) | payer MEDICARE, BC | END | disposition home or self-care (01) | LOC: RADBDWWP 15:37 | PROVIDERS: ATTEND Internal Medicine Endocrinology, Diabetes & Metabolism | DX: Z53.9 Procedure and treatment not carried out, unspecified reason (principal) ==

== ENCOUNTER 2023-09-13 05:13 | Emergency (ER) | payer MEDICARE, BC ==
[2023-09-13 05:36] VITALS: TEMP 98.5
--- NOTE | 2023-09-13 05:39 | ED ---
Dizziness HPI - General Source: patient Mode of arrival: ambulatory Limitations: no limitations <Hans Cantor - Last Filed: 09/13/23 05:47> <Lilian Fierro - Last Filed: 09/18/23 00:08> - General Chief Complaint: Dizziness Stated Complaint: High BP Time Seen by Provider: 09/13/23 05:37 - History of Present Illness Initial Comments: 78 year old female who came into the ED for room spinning sensation. Patient found to have high blood pressure. Has history of high blood pressure and vertigo. States this felt different from her typical episodes. Denies headache, vomiting. Admits nausea. Did not take anything for her symptoms including her morning blood pressure medications. (Lilian Fierro) - Related Data Home Medications Medication Instructions Recorded Confirmed Metoprolol Tartrate [Lopressor] 1.5 tab PO BID 12/11/18 07/20/20 lisinopriL [Prinivil] 0.5 tab PO DAILY 12/11/18 07/20/20 Fexofenadine/Pseudoephedrine 1 each PO BID 06/25/19 07/20/20 [Haylee-D 12 Hour Tablet] Multivitamin [Multivitamins Adult 1 tab PO DAILY 01/14/20 07/20/20 Gummies] Previous Rx's Medication Instructions Recorded Meclizine [Antivert] 25 mg PO TID PRN #20 tab 09/13/23 Allergies Allergy/AdvReac Type Severity Reaction Status Date / Time cat dander Allergy Unknown Verified 09/13/23 06:10 dog dander Allergy Unknown Verified 09/13/23 06:10 mold Allergy WATERY EYES Verified 09/13/23 06:10 perflutren [From Definity] Allergy Unknown Verified 09/13/23 06:10 prednisone AdvReac Unknown Verified 09/13/23 06:10 YEAST Allergy WATER EYES Uncoded 09/13/23 06:10 YOGURT Allergy WATERY EYES Uncoded 09/13/23 06:10 Review of Systems ROS Other: All systems not noted in ROS Statement are negative. <Hans Cantor - Last Filed: 09/13/23 05:47> ROS Other: All systems not noted in ROS Statement are negative. <Lilian Fierro - Last Filed: 09/18/23 00:08> ROS Statement: Those systems with pertinent positive or pertinent negative responses have been documented in the HPI. Past Medical History Past Medical History: GERD/Reflux, Thyroid Disorder Additional Past Medical History / Comment(s): 10/25/15 Pt admtitted to floor s/p parathyroidectomy. Other HX: ALLERGIES. PERIODIC VERTIGO. HYPOGYLCEMIA., PT VERY ANXIOUS ABOUT SURGERY. History of Any Multi-Drug Resistant Organisms: None Reported Past Surgical History: Appendectomy, Breast Surgery, Section, Hysterectomy Additional Past Surgical History / Comment(s): 10/25/15 Parathyroidectomy. Othr surgeries: BREAST SURGERY/NEG. D & C. LEFT CATARACT. Past Anesthesia/Blood Transfusion Reactions: No Reported Reaction, Motion Sickness Past Psychological History: No Psychological Hx Reported Smoking Status: Never smoker Past Alcohol Use History: None Reported Past Drug Use History: None Reported - Past Family History Father Family Medical History: Myocardial Infarction ([place]) Additional Family Medical History / Comment(s): Father of a VA at age 48 yrs. Mother Family Medical History: No Reported History Additional Family Medical History / Comment(s): Mother at age 85 yrs. <Hans Cantor - Last Filed: 09/13/23 05:47> General Exam Limitations: no limitations <Hans Cantor - Last Filed: 09/13/23 05:47> General appearance: alert, in no apparent distress Head exam: Present: atraumatic, normocephalic, normal inspection Eye exam: Present: normal appearance, PERRL, EOMI. Absent: scleral icterus, conjunctival injection, periorbital swelling ENT exam: Present: normal exam, mucous membranes moist Neck exam: Present: normal inspection. Absent: tenderness, meningismus, lymphadenopathy Respiratory exam: Present: normal lung sounds bilaterally. Absent: respiratory distress, wheezes, rales, rhonchi, stridor Cardiovascular Exam: Present: regular rate, normal rhythm, normal heart sounds. Absent: systolic murmur, diastolic murmur, rubs, gallop, clicks GI/Abdominal exam: Present: soft, normal bowel sounds. Absent: distended, tenderness, guarding, rebound, rigid Extremities exam: Present: normal inspection, full ROM, normal capillary refill. Absent: tenderness, pedal edema, joint swelling, calf tenderness Back exam: Present: normal inspection Neurological exam: Present: alert, oriented X3, CN II-XII intact Psychiatric exam: Present: normal affect, normal mood Skin exam: Present: warm, dry, intact, normal color. Absent: rash <Lilian Fierro - Last Filed: 09/18/23 00:08> Course Vital Signs 09/13/23 09/13/23 09/13/23 05:17 05:39 06:39 Temperature 98.5 F Pulse Rate 87 80 84 Respiratory 18 16 16 Rate Blood Pressure 208/84 224/90 209/94 O2 Sat by Pulse 97 98 97 Oximetry 09/13/23 09/13/23 09/13/23 07:56 08:56 10:08 Temperature Pulse Rate 76 81 75 Respiratory 20 20 18 Rate Blood Pressure 194/83 153/62 141/65 O2 Sat by Pulse 96 97 97 Oximetry 09/13/23 11:28 Temperature 98.5 F Pulse Rate 74 Respiratory 18 Rate Blood Pressure 154/71 O2 Sat by Pulse 98 Oximetry EKG Findings - EKG Results: EKG: interpreted by ERMD, sinus rhythm (Rate 88 bpm), normal axis, normal ST/T - Blocks, [place], Hypertrophy, ST Abn: QRS axis and voltage: low voltage (<0.5 MV total QRS and <1.0 MV in each precordial lead) <Hans Cantor - Last Filed: 09/13/23 05:47> Medical Decision Making - Lab Data Result diagrams: 09/13/23 05:58 09/13/23 05:58 <Lilian Fierro - Last Filed: 09/18/23 00:08> - Medical Decision Making Was pt. sent in by a medical professional or institution (, PA, PRODUCT INSPECTION COORDINATOR, urgent care, hospital, or assisted...) When possible be specific @ -No Did you speak to anyone other than the patient for history (EMS, parent, family, police, friend...)? What history was obtained from this source @ -No Did you review nursing and triage notes (agree or disagree)? Why? @ -I reviewed and agree with nursing and triage notes Were old charts reviewed (outside hosp., previous admission, EMS record, old EKG, old radiological studies, urgent care reports/EKG's, assisted records)? Report findings @ -No old charts were reviewed Differential Diagnosis (chest pain, altered mental status, abdominal pain women, abdominal pain men, vaginal bleeding, weakness, fever, dyspnea, syncope, headache, dizziness, GI bleed, back pain, seizure, CVA, palpatations, mental health, musculoskeletal)? @ -Differential Dizziness: Benign paroxysmal positional Vertigo, Menieres disease, otitis media, acoustic neuroma, vertebrobasilar insufficiency, cerebellar stroke, encephalitis, hypovolemic, arrhythmia, coronary artery syndrome, anemia, this is not meant to be an all-inclusive list EKG interpreted by me (3pts min.). @ -As above X-rays interpreted by me (1pt min.). @ -None done CT interpreted by me (1pt min.). @ -yes - no acute cva U/S interpreted by me (1pt. min.). @ -None done What testing was considered but not performed or refused? (CT, X-rays, U/S, labs)? Why? @ -None What meds were considered but not given or refused? Why? @ -None Did you discuss the management of the patient with other professionals (professionals i.e. , PA, PRODUCT INSPECTION COORDINATOR, lab, RT, psych nurse, social worker clinical, protective services officer, teacher, bank compliance officer, catalytic case operator)? Give summary @ -No Was smoking cessation discussed for >3mins.? @ -No Was critical care preformed (if so, how long)? @ -No Were there social determinants of health that impacted care today? How? (Homel essness, low income, unemployed, alcoholism, drug addiction, transportation, low edu. Level, literacy, decrease access to med. care, intermediate, rehab)? @ -No Was there de-escalation of care discussed even if they declined (Discuss DNR or withdrawal of care, Hospice)? DNR status @ -o What co-morbidities impacted this encounter? (DM, HTN, Smoking, COPD, CAD, Cancer, CVA, ARF, Chemo, Hep., AIDS, mental health diagnosis, sleep apnea, morbid obesity)? @ -htn Was patient admitted / discharged? Hospital course, mention meds given and route, prescriptions, significant lab abnormalities, going to OR and other pertinent info. @ -Upon arrival patient was placed in room 23. Thorough history and physical exam is performed. IV access was established. Laboratory studies are conducted. CT of the brain does return and is negative for acute intracranial process. Patient is asymptomatic at this time. She will be discharged home and instructed to follow with her primary care doctor. She will keep a blood pressure log. Take her medications as directed. return for any new or worsening symptoms per patient was given plan she is discharged in stable condition Undiagnosed new problem with uncertain prognosis? @ -No Drug Therapy requiring intensive monitoring for toxicity (Heparin, Nitro, Insulin, Cardizem)? @ -No Were any procedures done? @ -No Diagnosis/symptom? @ -acute vertigo, accelerated htn Acute, or Chronic, or Acute on Chronic? @ -acute Uncomplicated (without systemic symptoms) or Complicated (systemic symptoms)? @ -complicated Side effects of treatment? @ -No Exacerbation, Progression, or Severe Exacerbation? @ -No Poses a threat to life or bodily function? How? (Chest pain, [place], [place], pneumonia, PE, COPD, DKA, ARF, appy, cholecystitis, CVA, Diverticulitis, Homicidal, Suicidal, threat to staff... and all critical care pts) @ -No (Lilian Fierro) - Lab Data Lab Results 09/13/23 09/13/23 09/13/23 Range/Units 05:58 05:58 05:58 WBC 5.2 (3.8-10.6) k/uL RBC 4.71 (3.80-5.40) m/uL Hgb 14.0 (11.4-16.0) gm/dL Hct 43.2 (34.0-46.0) % MCV 91.6 (80.0-100.0) fL MCH 29.7 (25.0-35.0) pg MCHC 32.5 (31.0-37.0) g/dL RDW 12.6 (11.5-15.5) % Plt Count 195 (150-450) k/uL MPV 10.1 Neutrophils % 56 % Lymphocytes % 32 % Monocytes % 6 % Eosinophils % 2 % Basophils % 1 % Neutrophils # 2.9 (1.3-7.7) k/uL Lymphocytes # 1.7 (1.0-4.8) k/uL Monocytes # 0.3 (0-1.0) k/uL Eosinophils # 0.1 (0-0.7) k/uL Basophils # 0.0 (0-0.2) k/uL Sodium 142 (137-145) mmol/L Potassium 4.5 (3.5-5.1) mmol/L Chloride 106 (98-107) mmol/L Carbon Dioxide 27 (22-30) mmol/L Anion Gap 9 mmol/L BUN 21 H (7-17) mg/dL Creatinine 0.77 (0.52-1.04) mg/dL Est GFR (CKD-EPI)AfAm 86 (>60 ml/min/1.73 sqM) Est GFR (CKD-EPI)NonAf 75 (>60 ml/min/1.73 sqM) Glucose 96 (74-99) mg/dL Plasma Lactic Acid Madhav 1.4 (0.7-2.0) mmol/L Calcium 9.3 (8.4-10.2) mg/dL Total Bilirubin 0.6 (0.2-1.3) mg/dL AST 38 H (14-36) U/L ALT 29 (4-34) U/L Alkaline Phosphatase 77 (38-126) U/L Troponin I (0.000-0.034) ng/mL Total Protein 7.0 (6.3-8.2) g/dL Albumin 4.1 (3.5-5.0) g/dL 09/13/23 Range/Units 05:58 WBC (3.8-10.6) k/uL RBC (3.80-5.40) m/uL Hgb (11.4-16.0) gm/dL Hct (34.0-46.0) % MCV (80.0-100.0) fL MCH (25.0-35.0) pg MCHC (31.0-37.0) g/dL RDW (11.5-15.5) % Plt Count (150-450) k/uL MPV Neutrophils % % Lymphocytes % % Monocytes % % Eosinophils % % Basophils % % Neutrophils # (1.3-7.7) k/uL Lymphocytes # (1.0-4.8) k/uL Monocytes # (0-1.0) k/uL Eosinophils # (0-0.7) k/uL Basophils # (0-0.2) k/uL Sodium (137-145) mmol/L Potassium (3.5-5.1) mmol/L Chloride (98-107) mmol/L Carbon Dioxide (22-30) mmol/L Anion Gap mmol/L BUN (7-17) mg/dL Creatinine (0.52-1.04) mg/dL Est GFR (CKD-EPI)AfAm (>60 ml/min/1.73 sqM) Est GFR (CKD-EPI)NonAf (>60 ml/min/1.73 sqM) Glucose (74-99) mg/dL Plasma Lactic Acid Madhav (0.7-2.0) mmol/L Calcium (8.4-10.2) mg/dL Total Bilirubin (0.2-1.3) mg/dL AST (14-36) U/L ALT (4-34) U/L Alkaline Phosphatase (38-126) U/L Troponin I <0.012 (0.000-0.034) ng/mL Total Protein (6.3-8.2) g/dL Albumin (3.5-5.0) g/dL Disposition <Hans Cantor - Last Filed: 09/13/23 05:47> Is patient prescribed a controlled substance at d/c from ED?: No Time of Disposition: 11:18 <Lilian Fierro - Last Filed: 09/18/23 00:08> Clinical Impression: Vertigo, Hypertension Disposition: HOME SELF-CARE Condition: Stable Instructions (If sedation given, give patient instructions): Dizziness (ED) Additional Instructions: Please keep a log of your blood pressures 2-3 times per day. Follow-up with Dr. Wilson to talk about adjusting your blood pressure medications. Take the meclizine as needed for any dizzy spells and return for any new or worsening symptoms Prescriptions: Meclizine [Antivert] 25 mg PO TID PRN #20 tab PRN Reason: Vertigo Referrals: Akhil Leblanc MD [Primary Care Provider] - 1-2 days Baldev Wilson MD [STAFF PHYSICIAN] - 1-2 days
[2023-09-13] MEDS ORDERED: MECLIZINE 12.5 MG TAB PO STA (05:47)
[2023-09-13 06:20] LABS: Basophils % (A) 1 %; Eosinophils # (A) 0.1 k/uL (0-0.7); Eosinophils % (A) 2 %; HCT 43.2 % (34.0-46.0); Lymphocytes # (A) 1.7 k/uL (1.0-4.8); Lymphocytes % (A) 32 %; MCH 29.7 pg (25.0-35.0); MCHC 32.5 g/dL (31.0-37.0); MCV 91.6 fL (80.0-100.0); Mean Platelet Volume 10.1; Monocytes # (A) 0.3 k/uL (0-1.0); Monocytes % (A) 6 %; Neutrophils # (A) 2.9 k/uL (1.3-7.7); Neutrophils % (A) 56 %; Platelet Count 195 k/uL (150-450); RBC 4.71 m/uL (3.80-5.40); RDW 12.6 % (11.5-15.5); WBC 5.2 k/uL (3.8-10.6)
[2023-09-13 06:30] LABS: ALT 29 U/L (4-34); African American GFR (CKD) 86 (>60 ml/min/1.73 sqM); Albumin 4.1 g/dL (3.5-5.0); Anion Gap 9 mmol/L; Blood Urea Nitrogen 21 mg/dL (7-17); Calcium 9.3 mg/dL (8.4-10.2); Carbon Dioxide 27 mmol/L (22-30); Chloride 106 mmol/L (98-107); Glucose 96 mg/dL (74-99); Non-African American GFR(CKD) 75 (>60 ml/min/1.73 sqM); Sodium 142 mmol/L (137-145); Total Bilirubin 0.6 mg/dL (0.2-1.3)
[2023-09-13 06:52] LABS: AST 38 U/L (14-36); Alkaline Phosphatase 77 U/L (38-126); Potassium 4.5 mmol/L (3.5-5.1)
--- NOTE | 2023-09-13 07:43 | XR ---
EXAMINATION TYPE: XR chest 1V portable DATE OF EXAM: 09/13/2023 6:40 AM CLINICAL INDICATION:Female, 78 years old with history of dyspnea; [facility] COMPARISON: None TECHNIQUE: XR chest 1V portable Portable AP radiograph of the chest.. FINDINGS: Lines/Tubes/Devices: No indwelling lines are seen. Heart/mediastinum: Heart appears mildly enlarged. Tortuous aorta with atherosclerotic calcification. Pulmonary vascularity: Not increased, Lungs/Pleura: Hyperinflation with flattening of the diaphragm and mild interstitial changes. No evide nce of focal consolidation, sizeable pleural effusion, or pneumothorax. Musculoskeletal: No acute osseous abnormality demonstrated in the limits of the exam. Other findings: None. IMPRESSION: 1. No acute cardiopulmonary disease process. 2. COPD changes.
[2023-09-13] MEDS ORDERED: lisinopriL 10 MG TAB PO STA (08:36)
--- NOTE | 2023-09-13 09:25 | CT ---
EXAMINATION TYPE: CT head without contrast CT angio head neck DATE OF EXAM: 09/13/2023 COMPARISON: None HISTORY: 78-year-old female vertigo episode and high BP TECHNIQUE: Initial CT scan of the head without contrast. Coronal and sagittal reconstructions perform ed. Subsequent scanning of the head and neck performed with IV Contrast, patient injected with 65ml m L of Isovue 370. Coronal/sagittal reconstructions performed. 3-D reconstructions generated on a [employer] ated independent workstation. CT DLP: 1462.2 mGycm Automated exposure control for dose reduction was used. FINDINGS: Noncontrast CT head: Mild volume loss overlying the bilateral cerebral convexities. Mild patchy white matter hypodensities in both cerebral hemispheres. Atherosclerotic calcifications in the carotid siphons. No evidence for acute intracranial hemorrhage, acute change, mass, mass effect, midline shift, or ext ra-axial fluid collection. No hydrocephalus. No effacement of cerebral sulci or basal subarachnoid ci sterns. Dowd-white matter differentiation is maintained. Trace mucosal thickening ethmoid air cells and mastoid air cells are well pneumatized. CTA NECK: Asymmetric soft tissue enlargement along the left tonsillar pillar with a large tonsil measuring 6 mm . Lungs show biapical pleural-parenchymal scarring. Mild atherosclerotic arch calcifications with bovine configuration to the aortic arch. Vertebral arteries are codominant and patent throughout their course. The right common carotid arteries are patent. There is minimal atherosclerotic calcification of bilateral carotid bifurcations. The bilateral internal carotid arteries are patent. NASCET criteria was utilized. CTA HEAD: Atherosclerotic calcifications within the bilateral carotid siphons causing mild segmental atheroscle rotic narrowing. More mild to moderate narrowing in portions of the cavernous segment left ICA. Remainder of the anterior circulation is patent. No aneurysmal change is seen. Dural venous sinuses are patent. Vertebral arteries are codominant. Both vertebral and basilar arteries as well as the remainder poste rior circulation are patent. IMPRESSION: CT HEAD: 1. NO ACUTE INTRACRANIAL ABNORMALITY SEEN. 2. MILD ATROPHY AND MILD PATCHY BURNING OF CHRONIC SMALL VESSEL ISCHEMIC DISEASE. 3. CHRONIC ETHMOID SINUS DISEASE. CTA NECK: 4. ASYMMETRIC SOFT TISSUE ENLARGEMENT LEFT TONSILLAR PILLAR AND REPRESENT ASYMMETRIC TONSILLAR HYPERT ROPHY. A 6 MM TONSILLOLITHS IS PRESENT HERE. OUTPATIENT ENT DIRECT VISUALIZATION IF CLINICALLY INDICA SONNY. 5. WIDELY PATENT CAROTID AND VERTEBRAL ARTERIES OF THE NECK. CTA HEAD: 6. MILD TO MODERATE SEGMENTAL ATHEROSCLEROTIC NARROWING WITHIN THE CAROTID SIPHONS, LEFT GREATER THAN RIGHT. 7. NO LARGE VESSEL INTRACRANIAL ARTERIAL OCCLUSION, SIGNIFICANT STENOSIS, OR ANEURYSMAL CHANGE IS SEE N.
[2023-09-13 10:15] VITALS: RESP 18
[2023-09-13 11:29] VITALS: BP 154/71; PULSE 74
== END 2023-09-13 11:31 | disposition home or self-care (01) ==
LOC: EC 05:13
DX: R42 Dizziness and giddiness (principal); I10 Essential (primary) hypertension; J44.9 Chronic obstructive pulmonary disease, unspecified; Z79.899 Other long term (current) drug therapy; Z88.8 Allergy status to other drugs, medicaments and biological substances; Z91.018 Allergy to other foods
CPT/HCPCS: 36415; 93005; 80053; 83605; 84484; 85025; 71045; 70496; 70498; 99285; Q9967

== ENCOUNTER → 2023-09-17 | Outpatient (CLI) | payer MEDICARE, BC | END | disposition home or self-care (01) | LOC: LABWHC1 15:29 | PROVIDERS: ATTEND Internal Medicine Interventional Cardiology | DX: I10 Essential (primary) hypertension (principal) | CPT/HCPCS: 36415; 82088; 83835 ==

== ENCOUNTER → 2023-10-09 | Outpatient (CLI) | payer MEDICARE, BC ==
--- NOTE | 2023-10-09 08:57 | US ---
EXAMINATION TYPE: US renal artery duplex complet DATE OF EXAM: 10/09/2023 COMPARISON: NONE CLINICAL INDICATION: Female, 78 years old with history of I27.20 PULMONARY HYPERTENSION, UNSPECIFIED; HTN MEASUREMENTS: RENAL SIZE: Right Kidney: 8.9 x 3.3 x 3.4 cm Left Kidney: 9.9 x 4.3 x 3.7 cm Right Kidney: cortical thinning Left Kidney: cortical thinning Abd Aorta: wnl RESISTANCE INDEX Right: 1.00 Left: 0.74 RA/AO RATIO (< 3.5 ) Right: 2.3 Left: 2.2 RENAL ARTERY VELOCITY ( < 180 cm/s) Right: 230.2 Left: 223.8 Lightout Examiner Notes: Elevated bilateral proximal renal artery velocities. IMPRESSION: Mild renal artery stenosis bilaterally
== END | disposition home or self-care (01) ==
LOC: RADUSWWP 07:30
PROVIDERS: ATTEND Internal Medicine Interventional Cardiology
DX: I27.20 Pulmonary hypertension, unspecified (principal); I70.1 Atherosclerosis of renal artery
CPT/HCPCS: 93975

== ENCOUNTER → 2023-10-14 | Outpatient (CLI) | payer MEDICARE, BC ==
--- NOTE | 2023-10-14 15:45 | US ---
EXAMINATION TYPE: US abdomen complete DATE OF EXAM: 10/14/2023 COMPARISON: CT 11/05/2015 CLINICAL INDICATION: Female, 78 years old with history of R10.11 RIGHT UPPER QUADRANT PAIN; Intermitt ent RUQ and LUQ pain x 4 months. Hs HTN, Low Sugar, and Appendectomy TECHNIQUE: Multiple sonographic images of the abdomen are obtained. FINDINGS: EXAM MEASUREMENTS: Liver Length: 14.5 cm Gallbladder Wall: 0.3 cm CBD: 0.9 cm Spleen: 9.2 cm Right Kidney: 10.1 x 3.3 x 4.0 cm Left Kidney: 10.4 x 4.9 x 5.1 cm Pancreas: wnl Liver: wnl Gallbladder: wnl Evidence for sonographic Barnett's sign: No CBD: Mildly dilated. Spleen: wnl Right Kidney: wnl Left Kidney: A 2.6 x 2.5 x 1.9 cm hypoechoic cortical lesion at the lower pole. No hydronephrosis. Upper IVC: wnl Abd Aorta: wnl IMPRESSION: 1. Dilated bile duct up to 9 mm. This may be normal given patient's age. Correlate with alkaline phos phatase and bilirubin levels to exclude biliary obstruction. 2. No gallstones. 3. Probable lower pole parapelvic cyst left kidney measuring 2.6 cm. Internal echoes are present. Nayla ssess at a 6 month follow-up to ensure stability.
== END | disposition home or self-care (01) ==
LOC: RADUSWWP 07:45
PROVIDERS: ATTEND Family Medicine
DX: R10.11 Right upper quadrant pain (principal)
CPT/HCPCS: 76700

== ENCOUNTER → 2023-10-25 | Outpatient (CLI) | payer MEDICARE, BC ==
--- NOTE | 2023-10-25 15:49 | NM ---
Nuclear medicine hepatobiliary scan. HISTORY: Pain. DOSAGE: The patient received 8 0z Ensure plus and 4.8 mCi of Technetium 99m Choletec. FINDINGS: There is normal hepatic extraction. The gallbladder is seen by 15 minutes. There is bilia ry to bowel clearance by 20 minutes. Ejection fraction is 95%. IMPRESSION: 1. No evidence of cholecystitis. 2. Ejection fraction of 95% can be associated with hyperdynamic gallbladder.
== END | disposition home or self-care (01) ==
LOC: RADNMMAIN 12:51
PROVIDERS: ATTEND Family Medicine
DX: K82.8 Other specified diseases of gallbladder (principal)
CPT/HCPCS: 78227; A9537; J2805

== ENCOUNTER → 2023-12-23 | Outpatient (CLI) | payer MEDICARE, BC ==
[2023-12-23 16:10] LABS: ALT 20 U/L (8-44); AST 26 U/L (13-35); Albumin 4.1 g/dL (3.8-4.9); Albumin/Globulin Ratio 1.78 Ratio (1.60-3.17); Alkaline Phosphatase 59 U/L (41-126); BUN/Creat Ratio 22.11 Ratio (12.00-20.00); Blood Urea Nitrogen 19.9 mg/dL (9.0-27.0); Calcium 9.6 mg/dL (8.7-10.3); Carbon Dioxide 29.4 mmol/L (21.6-31.8); Chloride 107 mmol/L (96-109); Globulin 2.3 g/dL (1.6-3.3); Glucose 75 mg/dL (70-110); Potassium 4.7 mmol/L (3.5-5.5); Sodium 144 mmol/L (135-145); Total Bilirubin 0.5 mg/dL (0.3-1.2); Total Protein 6.4 g/dL (6.2-8.2)
== END | disposition home or self-care (01) ==
LOC: LABWHC1 09:57
PROVIDERS: ATTEND Internal Medicine Endocrinology, Diabetes & Metabolism
DX: M81.0 Age-related osteoporosis without current pathological fracture (principal)
CPT/HCPCS: 36415; 80053; 82306; 82523; 83970; 84443

== ENCOUNTER → 2024-01-23 | Outpatient (CLI) | payer MEDICARE, BC ==
--- NOTE | 2024-01-23 12:34 | XR ---
EXAMINATION TYPE: XR chest 2V DATE OF EXAM: 01/23/2024 12:26 PM CLINICAL INDICATION:Female, 78 years old with history of J18.9 PNEUMONIA; H COMPARISON: Chest radiographs from 09/13/2023 TECHNIQUE: XR chest 2V Frontal and lateral views of the chest. FINDINGS: Lungs/Pleura: There is flattening of the diaphragm with increased lucency of the lungs. No evidence o f pneumothorax, pleural effusion or focal consolidation. Pulmonary vascularity: Unremarkable. Heart/mediastinum: Cardiomediastinal silhouette is enlarged and stable. Musculoskeletal: No acute osseous pathology. IMPRESSION: 1. No acute cardiopulmonary disease process. 2. COPD changes.
== END | disposition home or self-care (01) ==
LOC: RADXRMAIN 12:08
PROVIDERS: ATTEND Nurse Practitioner Family
DX: J44.9 Chronic obstructive pulmonary disease, unspecified (principal); J18.9 Pneumonia, unspecified organism
CPT/HCPCS: 71046

== ENCOUNTER → 2024-06-23 | Outpatient (CLI) | payer MEDICARE, BC ==
--- NOTE | 2024-06-23 10:45 | BD ---
EXAMINATION TYPE: Axial Bone Density DATE OF EXAM: 06/23/2024 CLINICAL HISTORY: 79 years old Female. ICD-10 CODE: M81.0 AGE-RELATED OSTEOPOROSIS W/O CURRENT PATHO LO Height: 65 Weight: 167.3 FRAX RISK QUESTIONS: Alcohol (3 or more units per day): no Family History (Parent hip fracture): no Glucocorticoids (More than 3mos): no (Ex: prednisone, prednisolone, methylprednisolone, dexamethasone, and hydrocortisone). History of Fracture in Adulthood: yes Secondary Osteoporosis: 1. Type 1 Diabetes: no 2. Hyperthyroidism: no 3. Menopause before 45: yes 4. Malnutrition: no 5. Chronic liver disease: no Rheumatoid Arthritis: no Current Tobacco Use: no RISK FACTORS HISTORY OF: Surgery to Spine/Hip(right/left)/Wrist (right/left): no MEDICATIONS: Osteoporosis Medications: prolia How Long: off and on for about 4 years EXAM MEASUREMENTS: Bone mineral densitometry was performed using the CiDRA System. Bone mineral density as measured about the Lumbar spine is: ----- L1-L4(G/cm2): 0.958 T Score Values are as follows: ----- L1: -2.1 ----- L2: -2.2 ----- L3: -2.0 ----- L4: -1.3 ----- L1-L4: -1.8 Z Score Values are as follows: ----- L1: -0.6 ----- L2: -0.7 ----- L3: -0.5 ----- L4: 0.2 ----- L1-L4: -0.3 Bone mineral density has: increased 8.7 % since study of: 06.18.2022 Bone mineral density about the R hip (g/cm2): 0.942 Bone mineral density about the L hip (g/cm2): 0.937 T Score values are as follows: -----R Neck: -1.7 -----L Neck: -1.8 -----R Total: -0.5 -----L Total: -0.6 Z Score values are as follows: -----R Neck: 0.2 -----L Neck: 0.1 -----R Total: 1.2 -----L Total: 1.2 Bone mineral density has: increased 8.4 % since study of: 06.18.2022 FRAX%s: The graph provided illustrates a 20.4% chance for a major osteoporotic fx and a 4.8% chance f or the hips probability for fx in 10 years time. IMPRESSION: Osteopenia (T Score between -2.5 and -1). There is slightly increased risk of fracture and the patient may be considered for treatment. Re-Screen 2-5 years. NOTE: T-SCORE=SD OF THE YOUNG ADULT MEAN. [facility], , 06/23/2024 10:42 AM
== END | disposition home or self-care (01) ==
LOC: RADBDWWP 08:02
PROVIDERS: ATTEND Internal Medicine Endocrinology, Diabetes & Metabolism
DX: M81.0 Age-related osteoporosis without current pathological fracture
CPT/HCPCS: 77080

== ENCOUNTER → 2024-07-31 | Outpatient (CLI) | payer MEDICARE, BC ==
[2024-07-31 15:34] LABS: Basophils # (A) 0.05 X 10*3/uL (0.00-0.10); Eosinophils # (A) 0.09 X 10*3/uL (0.04-0.35); Eosinophils % (A) 1.8 %; HGB 12.4 g/dL (12.0-15.0); Lymphocytes # (A) 1.48 X 10*3/uL (0.90-5.00); Lymphocytes % (A) 29.4 %; MCH 29.1 pg (27.0-32.0); MCV 93.9 FL (80.0-97.0); Monocytes # (A) 0.55 X 10*3/uL (0.20-1.00); Monocytes % (A) 10.9 %; NRBC Per 100 WBC 0 X 10*3/uL (0.00-0.01); Neutrophils # (A) 2.84 X 10*3/uL (1.80-7.70); Neutrophils % (A) 56.5 %; Platelet Count 240 X 10*3/uL (140-440); RBC 4.26 X 10*6/uL (4.10-5.20); WBC 5.03 X 10*3/uL (4.50-10.00)
[2024-07-31 15:58] LABS: Chol/HDL Ratio 3.17 Ratio; Magnesium 2.1 mg/dL (1.5-2.4); Phosphorus 3.3 mg/dL (2.4-5.1)
[2024-07-31 15:59] LABS: ALT 26 U/L (8-44); AST 30 U/L (13-35); Albumin 4.3 g/dL (3.8-4.9); Albumin/Globulin Ratio 1.72 Ratio (1.60-3.17); Alkaline Phosphatase 65 U/L (41-126); Blood Urea Nitrogen 24.7 mg/dL (9.0-27.0); Calcium 9.6 mg/dL (8.7-10.3); Carbon Dioxide 26.3 mmol/L (21.6-31.8); Chloride 105 mmol/L (96-109); Globulin 2.5 g/dL (1.6-3.3); Glucose 90 mg/dL (70-110); LDL Cholesterol,Calculated 109.4 mg/dL (0.0-131.0); Potassium 4.7 mmol/L (3.5-5.5); Rheumatoid Factor, Qnt <15 IU/mL (0-15); Sodium 142 mmol/L (135-145); T4, Free (Free Thyroxine) 1.19 ng/dL (0.80-1.80); Total Bilirubin 0.6 mg/dL (0.3-1.2); Total Protein 6.8 g/dL (6.2-8.2)
[2024-07-31 16:51] LABS: NT-Pro-B-Type Natriuretic Pept 661 pg/mL (0-450)
== END | disposition home or self-care (01) ==
LOC: LABWHC1 08:32
PROVIDERS: ATTEND Nurse Practitioner Family
DX: Z83.2 Family history of diseases of the blood and blood-forming organs and certain disorders involving the immune mechanism (principal); M79.89 Other specified soft tissue disorders; E21.3 Hyperparathyroidism, unspecified; R43.8 Other disturbances of smell and taste
CPT/HCPCS: 36415; 80053; 80061; 82103; 82306; 82607; 82728; 83735; 83880; 83970; 84100; 84439; 84443; 84481; 84630; 85025; 86038; 86431

== ENCOUNTER → 2024-08-11 | Outpatient (CLI) | payer MEDICARE, BC ==
--- NOTE | 2024-08-14 14:59 | US ---
EXAMINATION TYPE: US venous doppler duplex LE BI DATE OF EXAM: 08/11/2024 2:47 PM COMPARISON: NONE CLINICAL INDICATION: Female, 79 years old with history of M25.472 EFFUSION IN LEFT ANKLE; Started wit h ?Infection in December - multiple whole body signs/symptoms; ankle swelling x 2 weeks , TECHNIQUE: The lower extremity deep venous system is examined utilizing real time linear array sonog cha with graded compression, color doppler sonography, and spectral doppler. SIDE PERFORMED: Bilateral FINDINGS: VESSELS IMAGED: Common Femoral Vein Deep Femoral Vein Greater Saphenous Vein * Femoral Vein Popliteal Vein Small Saphenous Vein * Proximal Calf Veins (* superficial vessels) Right Leg: Negative for DVT, Color Doppler imaging shows patency of the vessels. Spectral waveforms are within normal limits. Left Leg: Negative for DVT, Color Doppler imaging shows patency of the vessels. Spectral waveforms a re within normal limits. Posterior to the popliteal space is an echogenic area may be normal tissue. This is observed by the t echnologist but may be normal anatomic tissue. Consider MRI of the left knee for correlation. IMPRESSION: 1. Bilateral lower extremity ultrasound negative for deep venous thrombosis. 2. Somewhat echogenic area posterior knee in the popliteal space. This may be normal anatomic finding s, consider noncontrast MRI of the knee for additional evaluation. [facility], , 08/14/2024 2:57 PM
== END | disposition home or self-care (01) ==
LOC: RADUSWWP 14:22
PROVIDERS: ATTEND Family Medicine
DX: M25.472 Effusion, left ankle (principal)
CPT/HCPCS: 93970

== ENCOUNTER → 2024-12-01 | Outpatient (CLI) | payer MEDICARE, BC ==
--- NOTE | 2024-12-01 09:37 | MM ---
Reason for Exam: Screening (asymptomatic). Last mammogram was performed 1 year(s) and 11 month(s) ago. Patient History: Menarche at age 13. First Full-Term at age 19. Left ovary removed at age 46. Right ovary removed at age 46. Hysterectomy at age 35. Postmenopausal. Other cancer. Hormonal Contraceptives for 3 years from age 48 until age 51. Benign Cyst Aspiration on the right side. Benign Excisional Biopsy on the right side. Maternal grandmother had breast cancer, age 70. Maternal aunt had breast cancer, age 60. Risk Values: Brandie 5 year model risk: 1.5%. NCI Lifetime model risk: 2.6%. Prior Study Comparison: 08/09/2020 Bilateral Screening Mammogram, [facility]. 01/03/2022 Bilateral Screening Mammogram, [facility]. 01/16/2023 Bilateral MG 3D screening mammo w/cad, [facility]. Tissue Density: There are scattered areas of fibroglandular density. Findings: Analyzed By CAD. There is no suspicious group of microcalcifications or new suspicious mass in either breast. Overall Assessment: Benign, BI-RAD 2 Management: Screening Mammogram of both breasts in 1 year. . Patient should continue monthly self-breast exams. A clinical breast exam by your physician is recommended on an annual basis. This exam should not preclude additional follow-up of suspicious palpable abnormalities. Note on Brandie scores and lifetime risk: 1. A Brandie score greater than 3% is considered moderate risk. If this is the case, consider specialist referral to assess eligibility for a risk reducing agent. 2. If overall lifetime risk for the development of breast cancer is 20% or higher, the patient may qualify for future screening with alternating mammogram and breast MRI. [facility], , 12/01/2024 9:34 AM. Electronically signed and approved by: Michi Zhu M.D. [facility]
== END | disposition home or self-care (01) ==
LOC: RADMAMWWP 09:20
PROVIDERS: ATTEND Family Medicine
DX: Z12.31 Encounter for screening mammogram for malignant neoplasm of breast (principal); R92.323 Mammographic fibroglandular density, bilateral breasts; Z78.0 Asymptomatic menopausal state; Z80.3 Family history of malignant neoplasm of breast; Z92.0 Personal history of contraception
CPT/HCPCS: 77063; 77067